=== PATIENT | male | born 1985 ===

== ENCOUNTER 2020-11-03 19:33 | Outpatient (REF) | payer OTHER, SELFPAY | END 2020-11-03 19:34 | disposition home or self-care (01) | LOC: NCHCN 19:33 | PROVIDERS: Visit Provider Nurse Practitioner Community Health | DX: Z20.822 Contact with and (suspected) exposure to COVID-19 (principal); R06.02 Shortness of breath | CPT/HCPCS: U0003 ==

== ENCOUNTER 2023-08-23 09:08 | Outpatient (REF) | payer OTHER, SELFPAY ==
[2023-08-23 14:47] LABS: Abs Immature Grans 0.01 10^3/uL (0.0-0.06); Absolute Basophil Count 0.05 10^3/uL (0.0-0.2); Absolute Eosinophil Count 0.08 10^3/uL (0.0-0.7); Absolute Lymphocyte Count 1.48 10^3/uL (1.2-3.4); Absolute Monocyte Count 0.38 10^3/uL (0.1-0.8); Absolute Neutrophil Count 2.42 10^3/uL (1.2-6.7); Basophils % 1.1 %; Eosinophils % 1.8 %; HCT 44.8 % (40.0-50.0); Immature Grans % 0.2 %; Lymphocytes % 33.5 %; MCH 30.7 pg (27.0-33.0); MCHC 33.5 % (32.0-36.0); MCV 92 fL (80-95); MPV 10.2 fL (8.0-11.0); Monocytes % 8.6 %; Neutrophils % 54.8 %; Platelet Count 293 10^3/uL (130-400); RBC 4.89 10^6/uL (4.36-5.78); RDW 12.6 % (11.8-14.1); RDW-SD 42.5 fL; WBC 4.42 10^3/uL (4.4-10.8)
[2023-08-23 15:10] LABS: ALT 23 U/L (16-63); AST 21 U/L (15-37); Albumin 4.1 g/dL (3.4-5.0); Alkaline Phosphatase 47 U/L (46-116); Anion Gap 7.7 mmol/L (3-11); BUN 14 mg/dL (7-18); Bilirubin, Total 1.3 mg/dL (0.2-1.0); CO2 28.3 mmol/L (21.0-32.0); CREATININE 1.1 mg/dL (0.70-1.30); Calcium 9.2 mg/dL (8.5-10.1); Chloride 105 mmol/L (98-107); Estimated GFR 89.22 (mL/min/1.73m2); Glucose 93 mg/dL (74-106); Potassium 4.2 mmol/L (3.5-5.1); Sodium 141 mmol/L (136-145); TSH 1.05 uIU/Ml (0.36-3.74); Total Protein 7.1 g/dL (6.4-8.2)
== END 2023-08-23 09:09 | disposition home or self-care (01) ==
LOC: NCHCN 09:08
PROVIDERS: Visit Provider Nurse Practitioner Family
DX: R63.4 Abnormal weight loss (principal)
CPT/HCPCS: 80053; 84443; 85025